=== PATIENT | male | born 1970 | race American Indian/Alaskan Native ===

== ENCOUNTER 2020-10-11 17:18 | Inpatient (IN) | payer OTHER ==
[2020-10-11 18:14] LABS: Basophils % (Auto) 0.2 % (0.0-1.8); Hematocrit 44.5 % (35.5-45.6); Hemoglobin 14.5 gm/dl (11.8-15.2); Lymphocytes # (Auto) 1.3 K/mm3 (1.2-5.4); Lymphocytes % (Auto) 11.1 % (13.4-35.0); Mean Corpuscular HGB Conc 33 % (32-34); Mean Corpuscular Volume 80 fl (84-94); Monocytes # (Auto) 0.6 K/mm3 (0.0-0.8); Monocytes % (Auto) 5.4 % (0.0-7.3); Platelet Count 314 K/mm3 (140-440); Red Blood Count 5.58 M/mm3 (3.65-5.03); Red Cell Distribution Width 13.3 % (13.2-15.2)
[2020-10-11 18:30] LABS: Alanine Aminotransferase 134 units/L (7-56); Albumin 4.5 g/dL (3.9-5); BUN/Creatinine Ratio 13; Blood Urea Nitrogen 12 mg/dL (9-20); Calcium 9.5 mg/dL (8.4-10.2); Hemolysis Index 4
[2020-10-11 19:53] LABS: Bilirubin,Urine NEG (Negative); Blood,Urine SM (Negative); Color,Urine Yellow (Yellow); Mucus,Urine FEW /HPF; Protein,Urine <15 mg/dL mg/dL (Negative); Urobilinogen,Urine < 2.0 mg/dL (<2.0)
[2020-10-11] MEDS ORDERED: HYOSCYAMINE SUBL 0.125 MG TAB SL ONE (20:06)
[2020-10-11] MEDS ORDERED: ONDANSETRON 4 MG ODT TAB PO STA (20:06)
--- NOTE | 2020-10-11 20:12 | Emergency Department Report ---
ED Abdominal Pain HPI - General Chief Complaint: Abdominal Pain Stated Complaint: CHEST PAIN / ABD PAIN Time Seen by Provider: 10/11/20 20:05 Source: patient Mode of arrival: Wheelchair Limitations: No Limitations - History of Present Illness Initial Comments: 49-year-old obese F Vietnamese male [facility] emerge department complaining of abdominal pain since this morning associated with nausea and vomiting but no diarrhea and radiates up towards her chest and across to the right upper quadrant. States last bowel movement was yesterday and he feels that he is full and bloated and needs to have a bowel movement and is unable to do so. Reports no hemoptysis hematemesis hematochezia, no fever, chills, sweats. MD Complaint: abdominal pain Location: LUQ, RUQ, epigastric Migration to: no migration Quality: aching, dull Consistency: constant Improves With: nothing Worsens With: nothing Associated Symptoms: denies other symptoms - Related Data Allergies Allergy/AdvReac Type Severity Reaction Status Date / Time No Known Allergies Allergy Unverified 10/11/20 17:44 ED Review of Systems ROS: Stated complaint: CHEST PAIN / ABD PAIN Other details as noted in HPI Comment: All other systems reviewed and negative ED Past Medical Hx - Past Medical History Previous Medical History?: No - Surgical History Past Surgical History?: Yes Additional Surgical History: HERNIA SURGERY ED Physical Exam - General Limitations: No Limitations General appearance: alert, in no apparent distress - Head Head exam: Present: atraumatic, normocephalic - Eye Eye exam: Present: normal appearance - ENT ENT exam: Present: mucous membranes moist - Neck Neck exam: Present: normal inspection, full ROM - Respiratory Respiratory exam: Present: normal lung sounds bilaterally. Absent: respiratory distress - Cardiovascular Cardiovascular Exam: Present: regular rate, normal rhythm. Absent: systolic murmur, diastolic murmur, rubs, gallop - GI/Abdominal GI/Abdominal exam: Present: soft, tenderness (His diffuse tenderness and abdomen is protuberant slightly increased tympany noted. Pain with palpation. No rebound is noted. No Rovsing, no Cui Urrutia, no Red House sign. No CVA tenderness noted), guarding, normal bowel sounds. Absent: distended, rebound, rigid, organomegaly, mass - Rectal Rectal exam: Present: deferred. Absent: normal inspection, normal rectal tone - Extremities Exam Extremities exam: Present: normal inspection, normal capillary refill - Back Exam Back exam: Present: normal inspection. Absent: CVA tenderness (R), CVA tender ness (L) - Neurological Exam Neurological exam: Present: alert, oriented X3, CN II-XII intact - Psychiatric Psychiatric exam: Present: normal affect, normal mood - Skin Skin exam: Present: warm, dry, intact, normal color. Absent: rash, cyanosis, diaphoretic, erythema ED Course Vital Signs 10/11/20 17:46 Temperature 98.6 F Pulse Rate 68 Respiratory 18 Rate Blood Pressure 180/88 O2 Sat by Pulse 96 Oximetry ED Medical Decision Making - Lab Data Result diagrams: 10/11/20 17:59 10/11/20 17:59 - Radiology Data Radiology results: report reviewed [address] [place] [address] Cat Scan Report Signed Patient: CHAPIN RIOS MR#: [id number] : 1970 Acct:[id number] Age/Sex: 49 / M ADM Date: 10/11/20 Loc: ED Attending Dr: Ordering Physician: PAT RIOS Date of Service: 10/11/20 Procedure(s): CT abdomen pelvis w con Accession Number(s): [id number] cc: PAT RIOS CT abdomen pelvis w con INDICATION / CLINICAL INFORMATION: severe abdominal pain. TECHNIQUE: Axial CT images were obtained through the abdomen and pelvis after I V contrast. All CT scans at this location are performed using CT dose reduction for ALARA by means of automated expo sure control. COMPARISON: None available. FINDINGS: LOWER CHEST: Bibasilar volume loss. LIVER: Suspected hepatic steatosis. GALLBLADDER/BILIARY TREE: The gallbladder is distended with stones and wall thickening with pericholecystic fluid. No biliary dilatation. PANCREAS: No significant abnormality SPLEEN: No significant abnormality ADRENALS: No significant abnormality KIDNEYS / URETER: Right renal cysts. Kidneys enhance symmetrically. No hy dronephrosis. URINARY BLADDER: No significant abnormality REPRODUCTIVE ORGANS: No significant abnormality STOMACH / BOWEL: Colonic diverticulosis without evidence of diverticulitis.Small bowel is normal in caliber. The appendix is normal in caliber. LYMPH NODES: No significant adenopathy. VASCULATURE: No significant abnormality. OTHER: No free air, free fluid, or focal fluid collection is identified. Focal area of fat necrosis is seen within the mesentery of the left abdomen. Fat-containing periumbilical hernia without comp lication. SKELETAL SYSTEM: No acute osseous findings. IMPRESSION: 1. Distended gallbladder with stones and wall thickening with pericholecystic fluid, compatible with cholecystitis. No biliary dilatation. 2. No other acute abnormality. Other chronic and incidental findings as above. Signer Name: Jarred Barrett MD Signed: 10/11/2020 11:51 PM Workstation Name: [id number] Transcribed By: JACLYN Dictated By: JARRED BARRETT MD Electronically Authenticated By: JARRED BARRETT MD Signed Date/Time: 10/11/202350 DD/ 47 TD/TT: Print - Medical Decision Making Patient presents emergency department with complaint of abdominal pain which appears to be secondary to cholecystitis. A CT scan was performed to evaluate for potential causes of abdominal pain and did show some inflammatory changes to the gallbladder which coincided with the examination of pain to the epigastric and right upper quadrant region. Is also associated with nausea and vomiting. Labs did show an elevated white count 11.7 and ALT 134. Case was discussed with the surgeon Dr. Webber who advised to be n.p.o. and started on Zosyn or Levaquin with the hopes of surgical intervention later on today. At this week with hospitalist for admission process who will come to the bedside and evaluate the patient. I have discussed with the patient the findings on the CT scan and the need for surgical intervention. At this present time is no findings consistent with appendicitis, ischemic bowel, bowel perforation, obstructive pathology. Pain has been controlled with with morphine and nausea with Zofran. Attending Dr. Wetzel is aware of the patient and the findings and the need for admission Critical care attestation.: If time is entered above; I have spent that time in minutes in the direct care of this critically ill patient, excluding procedure time. ED Disposition Clinical Impression: Cholecystitis Disposition: OP ADMIT IP TO THIS HOSP Is pt being admited?: Yes Does the pt Need Aspirin: No Condition: Stable
--- NOTE | 2020-10-11 20:38 | XRay Report ---
ABDOMEN 3 VIEW(S) INDICATION / CLINICAL INFORMATION: Diffuse abdominal pain and no bowel movement. COMPARISON: None available. FINDINGS: TUBES / LINES: None. BOWEL GAS PATTERN: There is no evidence of bowel obstruction or mass effect. FREE AIR / EXTRALUMINAL GAS: None seen. ADDITIONAL FINDINGS: There is a 3.3 cm ovoid area of eggshell calcification in the left mid abdomen w hich is of uncertain etiology and clinical significance. CHEST: Visualized chest shows no significant abnormality. IMPRESSION: 1. No evidence of bowel obstruction or free air. 2. Nonspecific 3.3 cm eggshell calcification in the left mid abdomen. Signer Name: Sunil Hoyt MD Signed: 10/11/2020 8:33 PM Workstation Name: [id number]
[2020-10-11] MEDS ORDERED: MORPHINE 4 MG/1 ML INJ IV STA (22:34)
--- NOTE | 2020-10-11 23:55 | Cat Scan Report ---
CT abdomen pelvis w con INDICATION / CLINICAL INFORMATION: severe abdominal pain. TECHNIQUE: Axial CT images were obtained through the abdomen and pelvis after IV contrast. All CT sc ans at this location are performed using CT dose reduction for ALARA by means of automated exposure c ontrol. COMPARISON: None available. FINDINGS: LOWER CHEST: Bibasilar volume loss. LIVER: Suspected hepatic steatosis. GALLBLADDER/BILIARY TREE: The gallbladder is distended with stones and wall thickening with perichole cystic fluid. No biliary dilatation. PANCREAS: No significant abnormality SPLEEN: No significant abnormality ADRENALS: No significant abnormality KIDNEYS / URETER: Right renal cysts. Kidneys enhance symmetrically. No hydronephrosis. URINARY BLADDER: No significant abnormality REPRODUCTIVE ORGANS: No significant abnormality STOMACH / BOWEL: Colonic diverticulosis without evidence of diverticulitis.Small bowel is normal in c aliber. The appendix is normal in caliber. LYMPH NODES: No significant adenopathy. VASCULATURE: No significant abnormality. OTHER: No free air, free fluid, or focal fluid collection is identified. Focal area of fat necrosis i s seen within the mesentery of the left abdomen. Fat-containing periumbilical hernia without complica tion. SKELETAL SYSTEM: No acute osseous findings. IMPRESSION: 1. Distended gallbladder with stones and wall thickening with pericholecystic fluid, compatible with cholecystitis. No biliary dilatation. 2. No other acute abnormality. Other chronic and incidental findings as above. Signer Name: Ronni Barrett MD Signed: 10/11/2020 11:51 PM Workstation Name: [id number]
[2020-10-12] MEDS ORDERED: PIPERACILLIN/TAZOBACTAM 3.375 3.375 GM/50 ML BAG IV ONE (01:32)
[2020-10-12] MEDS ORDERED: MORPHINE 4 MG/1 ML INJ IV STA (01:52)
[2020-10-12] MEDS ORDERED: diphenhydrAMINE 50 MG/ML VIAL IV STA (01:52)
[2020-10-12] MEDS ORDERED: METOCLOPRAMIDE 10 MG/2 ML INJ IV STA (01:52)
[2020-10-12] MEDS ORDERED: METOCLOPRAMIDE 10 MG/2 ML INJ ONE (01:53)
[2020-10-12] MEDS ORDERED: diphenhydrAMINE 50 MG/ML VIAL ONE (01:53)
[2020-10-12] MEDS ORDERED: MORPHINE 4 MG/1 ML INJ ONE (01:53)
[2020-10-12] MEDS ORDERED: MAGNESIUM HYDROXIDE (MOM) ORAL LIQD UDC PO PRN (02:09)
[2020-10-12] MEDS ORDERED: ONDANSETRON 4 MG/2 ML INJ IV PRN (02:09)
[2020-10-12] MEDS ORDERED: ACETAMINOPHEN 325 MG TAB PO PRN (02:09)
--- NOTE | 2020-10-12 02:20 | History and Physical Report ---
History of Present Illness Date of examination: 10/12/20 Date of admission: 10/12/20 01:37 Chief complaint: Abdominal pain History of present illness: 49-year-old male with no significant past medical history presents to the emergency room today complaining of nausea and vomiting and abdominal pain. Abdominal pain is said to radiate towards the upper chest. He denies any diarrhea but states he feels bloated. Last bowel movement was less than 24 hours ago. He denies any hematemesis or hematochezia. Abdominal pain is said to be more in the upper abdomen, no no relieving or exacerbating factor. Patient denies any fever or chills, no headache or dizziness, no diaphoresis. Patient denies any hematuria or dysuria. Denies any sick contacts and no recent travel. Denies any contact with anyone with COVID-19. Work-up in the emergency room today, patient had a mildly elevated white count of 11.7, CT of the abdomen and pelvis shows findings compatible with cholecystitis. General surgeon Dr. Webber has been notified by the ER staff. Patient being admitted with acute cholecystitis. Past History Past Medical History: No medical history Past Surgical History: hernia repair Social history: no significant social history Family history: no significant family history Medications and Allergies Allergies Allergy/AdvReac Type Severity Reaction Status Date / Time No Known Allergies Allergy Unverified 10/11/20 17:44 Active Meds: Active Medications Acetaminophen (Acetaminophen 325 Mg Tab) 650 mg PO Q4H PRN PRN Reason: Pain MILD(1-3)/Fever >100.5/ABARCA Sodium Chloride (Nacl 0.9% 1000 Ml) 1,000 mls @ 125 mls/hr IV DIRECT HOLLY Piperacillin Sod/Tazobactam Sod (Zosyn/Ns 4.5gm/100ml) 4.5 gm in 100 mls @ 200 mls/hr IV Q8H HOLLY; Protocol Magnesium Hydroxide (Magnesium Hydroxide (Mom) Oral Liqd Udc) 30 ml PO Q4H PRN PRN Reason: Constipation Morphine Sulfate (Morphine 2 Mg/1 Ml Inj) 2 mg IV Q4H PRN PRN Reason: Pain, Moderate (4-6) Morphine Sulfate (Morphine 4 Mg/1 Ml Inj) 4 mg IV Q4H PRN PRN Reason: Pain , Severe (7-10) Ondansetron HCl (Ondansetron 4 Mg/2 Ml Inj) 4 mg IV Q8H PRN PRN Reason: Nausea And Vomiting Sodium Chloride (Sodium Chloride 0.9% 10 Ml Flush Syringe) 10 ml IV BID HOLLY Sodium Chloride (Sodium Chloride 0.9% 10 Ml Flush Syringe) 10 ml IV PRN PRN PRN Reason: LINE FLUSH Review of Systems Constitutional: no fever, no chills, no fatigue, no weakness Ears, nose, mouth and throat: no nasal congestion, no sore throat Cardiovascular: no chest pain, no palpitations Respiratory: no cough, no shortness of breath Gastrointestinal: abdominal pain, nausea, vomiting, no diarrhea Musculoskeletal: no neck pain, no low back pain Integumentary: no rash, no pruritis Neurological: no headaches, no confusion Psychiatric: no anxiety, no depression Endocrine: no polyphagia, no polydipsia, no polyuria, no nocturia Exam - Constitutional Vitals: Temp Pulse Resp BP Pulse Ox 98.6 F 68 18 180/88 96 10/11/20 17:46 10/11/20 17:46 10/11/20 17:46 10/11/20 17:46 10/11/20 17:46 General appearance: Present: no acute distress, well-nourished - EENT Eyes: Present: PERRL, EOM intact. Absent: scleral icterus ENT: hearing intact, clear oral mucosa, dentition normal - Neck Neck: Present: supple, normal ROM - Respiratory Respiratory effort: normal Respiratory: bilateral: CTA - Cardiovascular Rhythm: regular Heart Sounds: Present: S1 & S2. Absent: gallop, systolic murmur, diastolic murmur, rub, click - Extremities Extremities: no ischemia, No edema, normal temperature, normal color, Full ROM Peripheral Pulses: within normal limits - Abdominal General gastrointestinal: Present: soft, non-tender, non-distended, normal bowel sounds. Absent: mass - Integumentary Integumentary: Present: clear, warm, dry. Absent: rash - Musculoskeletal Musculoskeletal: strength equal bilaterally - Psychiatric Psychiatric: appropriate mood/affect, intact judgment & insight, memory intact, cooperative - Neurologic Neurologic: CNII-XII intact, no focal deficits, moves all extremities Results - Labs CBC & Chem 7: 10/11/20 17:59 10/11/20 17:59 Labs: Abnormal lab results 10/11/20 10/11/20 Range/Units 17:59 17:59 WBC 11.7 H (4.5-11.0) K/mm3 RBC 5.58 H (3.65-5.03) M/mm3 MCV 80 L (84-94) fl MCH 26 L (28-32) pg Lymph % (Auto) 11.1 L (13.4-35.0) % Seg Neutrophils % 83.3 H (40.0-70.0) % Seg Neutrophils # 9.8 H (1.8-7.7) K/mm3 Glucose 130 H (75-100) mg/dL ALT 134 H (7-56) units/L Assessment and Plan - Patient Problems (1) Cholecystitis Current Visit: Yes Status: Acute Plan to address problem: Patient admitted and placed n.p.o. We will place on IV fluid and empiric IV antibiotics as recommended by the surgeon. Dr. Webber has been consulted by the ER physician. (2) DVT prophylaxis Current Visit: Yes Status: Acute Plan to address problem: Patient placed on sequential compression device. (3) Full code status Current Visit: Yes Status: Acute Plan to address problem: Patient is a full code.
--- NOTE | 2020-10-12 03:09 | XRay Report ---
XR chest routine 2V INDICATION / CLINICAL INFORMATION: preop. COMPARISON: 10/11/2020 FINDINGS: SUPPORT DEVICES: None. HEART /PULMONARY VASCULATURE: No significant abnormality. LUNGS / PLEURA: Low lung volumes with bibasilar volume loss. No pneumothorax. ADDITIONAL FINDINGS: No significant additional findings. IMPRESSION: 1. No acute findings. Signer Name: Ronni Barrett MD Signed: 10/12/2020 3:05 AM Workstation Name: [id number]
[2020-10-12] MEDS: SODIUM CHLORIDE 0.9% 1000 ML 1,000 ML IV SCH ×3 (03:23→20:00)
[2020-10-12] MEDS: MORPHINE 2 MG/1 ML INJ IV PRN (09:27)
[2020-10-12] MEDS: PIPERACIL/TAZOBACTA 4.5/NS 100 4.5 GM/100 ML VIAL IV SCH ×2 (09:27→17:38)
--- NOTE | 2020-10-12 12:37 | Event Note ---
Date: 10/12/20 Patient seen and examined, resting, still with some right upper quadrant pain. No new compliants. Awaiting surgical eval.
--- NOTE | 2020-10-12 14:17 | Consultation ---
History of Present Illness Consult date: 10/12/20 Reason for consult: abdominal pain - History of present illness History of present illness: 49 yo male who presented to the ED c/o RUQ pain, nausea and vomiting. Pt denies fever, chills, hematemesis or urinary complaints. Past History Past Medical History: No medical history Past Surgical History: hernia repair Social history: no significant social history Family history: no significant family history, other (FH is + for gallbladder disease.) Medications and Allergies Allergies Allergy/AdvReac Type Severity Reaction Status Date / Time No Known Allergies Allergy Unverified 10/11/20 17:44 Home Medications Medication Instructions Recorded Confirmed Last Taken Type No Known Home Medications [No 10/12/20 10/12/20 Unknown History Reported Home Medications] Active Meds: Active Medications Acetaminophen (Acetaminophen 325 Mg Tab) 650 mg PO Q4H PRN PRN Reason: Pain MILD(1-3)/Fever >100.5/ABARCA Sodium Chloride (Nacl 0.9% 1000 Ml) 1,000 mls @ 125 mls/hr IV DIRECT HOLLY Last Admin: 10/12/20 03:23 Dose: 125 mls/hr Documented by: Piperacillin Sod/Tazobactam Sod (Zosyn/Ns 4.5gm/100ml) 4.5 gm in 100 mls @ 200 mls/hr IV Q8H HOLLY; Protocol Last Admin: 10/12/20 09:27 Dose: 200 mls/hr Documented by: Magnesium Hydroxide (Magnesium Hydroxide (Mom) Oral Liqd Udc) 30 ml PO Q4H PRN PRN Reason: Constipation Morphine Sulfate (Morphine 2 Mg/1 Ml Inj) 2 mg IV Q4H PRN PRN Reason: Pain, Moderate (4-6) Last Admin: 10/12/20 09:27 Dose: 2 mg Documented by: Morphine Sulfate (Morphine 4 Mg/1 Ml Inj) 4 mg IV Q4H PRN PRN Reason: Pain , Severe (7-10) Ondansetron HCl (Ondansetron 4 Mg/2 Ml Inj) 4 mg IV Q8H PRN PRN Reason: Nausea And Vomiting Sodium Chloride (Sodium Chloride 0.9% 10 Ml Flush Syringe) 10 ml IV BID HOLLY Last Admin: 10/12/20 09:28 Dose: 10 ml Documented by: Sodium Chloride (Sodium Chloride 0.9% 10 Ml Flush Syringe) 10 ml IV PRN PRN PRN Reason: LINE FLUSH Review of Systems All systems: negative (none.) Exam Vital Signs Temp Pulse Resp BP Pulse Ox 98.6 F 68 18 180/88 96 10/11/20 17:46 10/11/20 17:46 10/11/20 17:46 10/11/20 17:46 10/11/20 17:46 - General physical appearance Positive: well developed, well nourished, no distress - Eyes Positive: PERRL, normal occular movement - ENT Positive: normal pinna, normal nares, normal mucosa, no hearing loss, no congestion - Neck Positive: no masses, no bruits, trachea midline, no venous distension - Respiratory Positive: normal expansion, normal respiratory effort, clear to auscultation - Cardiovascular Rhythm: regular Heart Sounds: Present: S1 & S2. Absent: rub, click - Extremities Extremities: no ischemia, pulses symmetrical, No edema - Breasts Breasts: normal, no mass, no skin changes - Abdomen Abdomen: Present: soft, bowel sounds normal, other (Mild tenderness in the RUQ with mild guarding.). Absent: distended Hernia: none - Genitourinary Male Genitourinary: normal Female Genitourinary: normal - Integumentary no rash, no growths, no abnormal pigmentation - Neurologic Neurologic: alert and oriented to time, place and person, motor strength and sensation are grossly intact - Musculoskeletal normal gait, normal posture - Psychiatric Psychiatric: appropriate mood/affect, intact judgment & insight Results - Labs 10/11/20 17:59 10/11/20 17:59 Abnormal lab results 10/11/20 10/11/20 Range/Units 17:59 17:59 WBC 11.7 H (4.5-11.0) K/mm3 RBC 5.58 H (3.65-5.03) M/mm3 MCV 80 L (84-94) fl MCH 26 L (28-32) pg Lymph % (Auto) 11.1 L (13.4-35.0) % Seg Neutrophils % 83.3 H (40.0-70.0) % Seg Neutrophils # 9.8 H (1.8-7.7) K/mm3 Glucose 130 H (75-100) mg/dL ALT 134 H (7-56) units/L Diabetes panel 10/11/20 Range/Units 17:59 Sodium 137 (137-145) mmol/L Potassium 4.4 (3.6-5.0) mmol/L Chloride 100.0 (98-107) mmol/L Carbon Dioxide 23 (22-30) mmol/L BUN 12 (9-20) mg/dL Creatinine 0.9 (0.8-1.3) mg/dL Glucose 130 H (75-100) mg/dL Calcium 9.5 (8.4-10.2) mg/dL AST 36 (5-40) units/L ALT 134 H (7-56) units/L Alkaline Phosphatase 125 (35-129) units/L Total Protein 7.9 (6.3-8.2) g/dL Albumin 4.5 (3.9-5) g/dL Calcium panel 10/11/20 Range/Units 17:59 Calcium 9.5 (8.4-10.2) mg/dL Albumin 4.5 (3.9-5) g/dL Pituitary panel 10/11/20 Range/Units 17:59 Sodium 137 (137-145) mmol/L Potassium 4.4 (3.6-5.0) mmol/L Chloride 100.0 (98-107) mmol/L Carbon Dioxide 23 (22-30) mmol/L BUN 12 (9-20) mg/dL Creatinine 0.9 (0.8-1.3) mg/dL Glucose 130 H (75-100) mg/dL Calcium 9.5 (8.4-10.2) mg/dL Adrenal panel 10/11/20 Range/Units 17:59 Sodium 137 (137-145) mmol/L Potassium 4.4 (3.6-5.0) mmol/L Chloride 100.0 (98-107) mmol/L Carbon Dioxide 23 (22-30) mmol/L BUN 12 (9-20) mg/dL Creatinine 0.9 (0.8-1.3) mg/dL Glucose 130 H (75-100) mg/dL Calcium 9.5 (8.4-10.2) mg/dL Total Bilirubin 0.60 (0.1-1.2) mg/dL AST 36 (5-40) units/L ALT 134 H (7-56) units/L Alkaline Phosphatase 125 (35-129) units/L Total Protein 7.9 (6.3-8.2) g/dL Albumin 4.5 (3.9-5) g/dL - Imaging CT scan - abdomen: report reviewed CT scan - pelvis: report reviewed Assessment and Plan - Patient Problems (1) Cholecystitis Current Visit: Yes Status: Acute Plan to address problem: 1) NPO 2) RUQ US 3) Lap justin tomorrow 4) SCD
--- NOTE | 2020-10-12 15:32 | Ultrasound Report ---
Limited abdominal ultrasound INDICATION: Abdominal pain with right upper quadrant pain FINDINGS: Aorta is not well seen. Visualized aorta appears normal. Liver measures 15.9 cm with fatty infiltration. Multiple gallstones are identified. Gallbladder wall is thickened measuring 5 mm. Pancr eas and IVC are not well seen. Portal vein is patent. IMPRESSION: 1. Cholelithiasis with gallbladder wall thickening. Clinical correlation for cholecystitis. No perich olecystic fluid. 2. Fatty infiltration of the liver. Signer Name: Greg Soolmon MD Signed: 10/12/2020 3:27 PM Workstation Name: [id number]
[2020-10-12] MEDS: MORPHINE 4 MG/1 ML INJ IV PRN (15:37)
--- NOTE | 2020-10-12 18:01 | Electrocardiograph Report ---
[facility] Test Date: 2020-10-11 Test Time: 17:49:45 Pat Name: CHAPIN RIOS Department: Room: B303 1 Gender: M Philosophy Professor: HARRISON : 1970 Requested By: CARLA OAKES Order Number: [id number] Reading MD: Alysa Feldman Measurements Intervals [place] Rate: 69 P: -15 MI: 128 QRS: 24 QRSD: 84 T: 12 QT: 391 QTc: 419 Interpretive Statements Sinus rhythm No previous ECG available for comparison Electronically Signed On 10-12-2020 18:00:26 EDT by Alysa Feldman
[2020-10-13] MEDS: PIPERACIL/TAZOBACTA 4.5/NS 100 4.5 GM/100 ML VIAL IV SCH ×3 (01:42→19:17)
[2020-10-13] MEDS ORDERED: ROCURONIUM 50 MG/5 ML INJ IV ONE ×2 (07:56→10:48)
[2020-10-13] MEDS ORDERED: KETOROLAC 30 MG/1 ML INJ ONE (07:56)
[2020-10-13] MEDS ORDERED: fentaNYL 100 MCG/2 ML INJ ONE ×3 (07:56→11:15)
[2020-10-13] MEDS ORDERED: ONDANSETRON 4 MG/2 ML INJ ONE (07:56)
[2020-10-13] MEDS ORDERED: dexAMETHasone 20 MG/5 ML VIAL ONE (07:56)
[2020-10-13] MEDS ORDERED: LIDOCAINE MPF (2%) 20 MG/1 ML VIAL 5 ML ONE (07:56)
[2020-10-13] MEDS ORDERED: propofoL 200 MG/20 ML VIAL IV ONE (07:59)
[2020-10-13] MEDS ORDERED: BUPIVACAINE/PF (0.25%) 2.5 MG/ML 30 ML VIAL INFILTRATI ONE ×3 (08:06→09:47)
[2020-10-13] MEDS ORDERED: MIDAZOLAM 2 MG/2 ML INJ ONE (09:14)
[2020-10-13 09:16] LABS: Basophils % (Auto) 0.2 % (0.0-1.8); Eosinophils % (Auto) 0.1 % (0.0-4.3); Hematocrit 37.9 % (35.5-45.6); Hemoglobin 12.8 gm/dl (11.8-15.2); Lymphocytes # (Auto) 1.8 K/mm3 (1.2-5.4); Lymphocytes % (Auto) 13.1 % (13.4-35.0); Mean Corpuscular HGB Conc 34 % (32-34); Mean Corpuscular Volume 79 fl (84-94); Monocytes % (Auto) 7.3 % (0.0-7.3); Platelet Count 250 K/mm3 (140-440); Red Blood Count 4.79 M/mm3 (3.65-5.03); Red Cell Distribution Width 13.6 % (13.2-15.2)
[2020-10-13] MEDS ORDERED: HYDROmorphone 1 MG/1 ML INJ ONE (09:28)
[2020-10-13 09:35] LABS: INR 1.19 (0.87-1.13)
[2020-10-13 09:42] LABS: BUN/Creatinine Ratio 9; Blood Urea Nitrogen 11 mg/dL (9-20); Calcium 8.7 mg/dL (8.4-10.2); Hemolysis Index 0
[2020-10-13] MEDS ORDERED: SODIUM CHLORIDE 0.9% IRR 1,500 ML BOTTLE IR ONE ×2 (09:47)
[2020-10-13] MEDS ORDERED: SODIUM CHLORIDE 0.9% IRRIG SOLN 2000 ML IR ONE ×2 (09:47)
[2020-10-13] MEDS ORDERED: PHENYLEPHRINE/NS 1,000 MCG/10 ML SYRINGE (OR USE) IV ONE (10:03)
[2020-10-13] MEDS ORDERED: NEOSTIGMINE 10MG/10 ML INJ MDV ONE (10:24)
[2020-10-13] MEDS ORDERED: GLYCOPYRROLATE 0.4 MG/2 ML INJ ONE (10:24)
--- NOTE | 2020-10-13 12:56 | Procedure Note ---
Date of procedure: 10/13/20 Pre-op diagnosis: 1) Acute cholecystitis Post-op diagnosis: same (Also, incarcerated epigastric hernia) Procedure: 1) Laparoscopic cholecystectomy 2) Open ventral hernia repair Description of procedure: Pt was placed supine on the OR table. GETA was admi nistered. Abdomen was prepped and draped. Proposed trocar incisions were infiltrated with 10 ml of 0.25% Marcaine with epinephrine. Peritoneal cavity was entered via a small infraumbilical incision. [place] port was inserted into the peritoneal cavity and pneumoperitoneum established. 10 mm subxiphoid, 5 mm RUQ and 5 mm right lateral ports were inserted into the peritoneal cavity under direct vision. Pt was placed head and right side up. Omental adhesions covered the gallbladder. These were bluntly lysed. The gallbladder was tense and markedly inflamed. A needle trocar was used to aspirate about 30 ml of bilious fluid from the gallbladder. Gallbladder fundus was grasped and was retracted cephalad. Neck of the gallbladder was skeletonized and the critical view of safety obtained. Cystic duct was milked toward the gallbladder. Cystic duct and artery were doubly clipped and divided. Gallbladder was dissected off of the liver fossa with blunt and cautery dissection. Gallbladder was placed in an endobag. I then prepared to enlarge the infraumbilical incison to remove the gallbladder and identified an incarcerated supraumbilical fascial defect measuring about 1.8 cm in diameter. I extended the infraumbilical fascial incision cephalad to include the supraumbilical hernia. The supraumbilical hernia sac was incised and the incarcerated omentum freed up and returned to the peritoneal cavity. The sac was excised down to it's fascial margins. The now single fascial defect was closed with multiple interrupted sutures of 0- Ethibond. Prior to completely closing the periumbilical fascial defect, a [place] port was re-inserted into the peritoneal cavity and pneumoperitoneum re- established. A 10 mm flat ARNOLDO drain was passed into the peritoneal and was placed in the infra-hepatic space/gallbladder fossa. It was then brought out via the right lateral 5 mm trocar site and was secured to the skin with a single suture of 3-0 Nylon. [place] port and upper abdominal ports were removed and there was no bleeding from the port entry sites under low pressure. Skin incisions were closed with running subcuticular sutures of 4-0 Monocryl. Skin glue was applied to all incisions except the right lateral incision which was dressed with a slitted gauze. Pt tolerated the procedure well. Pt was extubated in the OR and was taken to PACU in stable condition. Findings: 1) Severe acute cholecystitis 2) Incarcerated epigastric hernia Anesthesia: GETA Surgeon: NAVID VASQUEZ Estimated blood loss: other (200 ml) Pathology: list (1) Gallbladder and stones 2) Hernia sac) Specimen disposition: to lab Condition: stable Disposition: PACU
--- NOTE | 2020-10-13 13:48 | Progress Note ---
Assessment and Plan Assessment and plan: Acute cholecystitis -Status post laparoscopic cholecystectomy. Discussed with Dr. Webber and he said patient has inflamed gallbladder and placed draining tube -Continue with IV antibiotic Ventral hernia -Status post hernia repair Per Dr. Webber patient to be in the hospital for a couple of days for IV antibiotics. History Interval history: Patient was admitted for acute cholecystitis Status post cholecystectomy and ventral hernia repair Hospitalist Physical - Physical exam Narrative exam: Not in cardiopulmonary distress. The patient appeared well nourished and normally developed. Vital signs as documented. Head exam is unremarkable. No scleral icterus . Neck is without jugular venous distension, thyromegaly, or carotid bruits. Lungs are clear to auscultation. Cardiac exam reveals regular rate and Rhythm. Abdominal exam reveals laparoscopic incisions. Extremities are nonedematous and both femoral and pedal pulses are normal. HAND THERMAL CUTTER: Alert and oriented 3. No focal weakness. - Constitutional Vitals: Temp Pulse Resp BP Pulse Ox 98.1 F 84 20 118/72 98 10/13/20 12:50 10/13/20 12:50 10/13/20 12:50 10/13/20 12:50 10/13/20 12:50 General appearance: Present: no acute distress, well-nourished Results - Labs CBC & Chem 7: 10/13/20 07:55 10/13/20 07:55 Labs: Laboratory Last Values WBC 13.4 K/mm3 (4.5-11.0) H 10/13/20 07:55 RBC 4.79 M/mm3 (3.65-5.03) 10/13/20 07:55 Hgb 12.8 gm/dl (11.8-15.2) 10/13/20 07:55 Hct 37.9 % (35.5-45.6) D 10/13/20 07:55 MCV 79 fl (84-94) L 10/13/20 07:55 MCH 27 pg (28-32) L 10/13/20 07:55 MCHC 34 % (32-34) 10/13/20 07:55 RDW 13.6 % (13.2-15.2) 10/13/20 07:55 Plt Count 250 K/mm3 (140-440) 10/13/20 07:55 Lymph % (Auto) 13.1 % (13.4-35.0) L 10/13/20 07:55 [place] % (Auto) 7.3 % (0.0-7.3) 10/13/20 07:55 Eos % (Auto) 0.1 % (0.0-4.3) 10/13/20 07:55 Baso % (Auto) 0.2 % (0.0-1.8) 10/13/20 07:55 Lymph # (Auto) 1.8 K/mm3 (1.2-5.4) 10/13/20 07:55 [place] # (Auto) 1.0 K/mm3 (0.0-0.8) H 10/13/20 07:55 Eos # (Auto) 0.0 K/mm3 (0.0-0.4) 10/13/20 07:55 Baso # (Auto) 0.0 K/mm3 (0.0-0.1) 10/13/20 07:55 Seg Neutrophils % 79.3 % (40.0-70.0) H 10/13/20 07:55 Seg Neutrophils # 10.7 K/mm3 (1.8-7.7) H 10/13/20 07:55 PT 15.6 Sec. (12.2-14.9) H 10/13/20 07:55 INR 1.19 (0.87-1.13) H 10/13/20 07:55 Sodium 138 mmol/L (137-145) 10/13/20 07:55 Potassium 4.0 mmol/L (3.6-5.0) 10/13/20 07:55 Chloride 100.7 mmol/L (98-107) 10/13/20 07:55 Carbon Dioxide 24 mmol/L (22-30) 10/13/20 07:55 Anion Gap 17 mmol/L 10/13/20 07:55 BUN 11 mg/dL (9-20) 10/13/20 07:55 Creatinine 1.2 mg/dL (0.8-1.3) 10/13/20 07:55 Estimated GFR > 60 ml/min 10/13/20 07:55 BUN/Creatinine Ratio 9 % 10/13/20 07:55 Glucose 102 mg/dL (75-100) H 10/13/20 07:55 Calcium 8.7 mg/dL (8.4-10.2) 10/13/20 07:55 Total Bilirubin 0.60 mg/dL (0.1-1.2) 10/11/20 17:59 AST 36 units/L (5-40) 10/11/20 17:59 ALT 134 units/L (7-56) H 10/11/20 17:59 Alkaline Phosphatase 125 units/L (35-129) 10/11/20 17:59 Total Protein 7.9 g/dL (6.3-8.2) 10/11/20 17:59 Albumin 4.5 g/dL (3.9-5) 10/11/20 17:59 Albumin/Globulin Ratio 1.3 % 10/11/20 17:59 Lipase 50 units/L (13-60) 10/11/20 17:59 Urine Color Yellow (Yellow) 10/11/20 19:38 Urine Turbidity Clear (Clear) 10/11/20 19:38 Urine pH 5.0 (5.0-7.0) 10/11/20 19:38 Ur Specific [place] 1.021 (1.003-1.030) 10/11/20 19:38 Urine Protein <15 mg/dl mg/dL (Negative) 10/11/20 19:38 Urine Glucose (UA) Neg mg/dL (Negative) 10/11/20 19:38 Urine Ketones 20 mg/dL (Negative) 10/11/20 19:38 Urine Blood Sm (Negative) 10/11/20 19:38 Urine Nitrite Neg (Negative) 10/11/20 19:38 Urine Bilirubin Neg (Negative) 10/11/20 19:38 Urine Urobilinogen < 2.0 mg/dL (<2.0) 10/11/20 19:38 Ur Leukocyte Esterase Neg (Negative) 10/11/20 19:38 Urine WBC (Auto) 1.0 /HPF (0.0-6.0) 10/11/20 19:38 Urine RBC (Auto) 7.0 /HPF (0.0-6.0) 10/11/20 19:38 Urine Mucus Few /HPF 10/11/20 19:38 [place]/IV: Voiding Method Toilet Active Medications - Current Medications Current Medications: Generic Name Dose Route Start Last Admin Trade Name Zekeq PRN Reason Stop Dose Admin Acetaminophen 650 mg 10/12/20 02:09 10/12/20 16:54 Acetaminophen 325 Mg Tab PO 650 mg Q4H PRN Administration Pain MILD(1-3)/Fever >100.5/ABARCA Sodium Chloride 1,000 mls @ 125 mls/hr 10/12/20 02:15 10/12/20 20:00 Nacl 0.9% 1000 Ml IV 125 mls/hr DIRECT HOLLY Administration Piperacillin Sod/Tazobactam Sod 4.5 gm in 100 mls @ 200 mls/hr 10/12/20 10:00 10/13/20 13:21 Zosyn/Ns 4.5gm/100ml IV Not Given Q8H HOLLY Protocol Magnesium Hydroxide 30 ml 10/12/20 02:09 Magnesium Hydroxide (Mom) Oral Liqd Udc PO Q4H PRN Constipation Morphine Sulfate 2 mg 10/12/20 02:09 10/12/20 09:27 Morphine 2 Mg/1 Ml Inj IV 2 mg Q4H PRN Administration Pain, Moderate (4-6) Morphine Sulfate 4 mg 10/12/20 02:09 10/12/20 15:37 Morphine 4 Mg/1 Ml Inj IV 4 mg Q4H PRN Administration Pain , Severe (7-10) Ondansetron HCl 4 mg 10/12/20 02:09 Ondansetron 4 Mg/2 Ml Inj IV Q8H PRN Nausea And Vomiting Sodium Chloride 10 ml 10/12/20 08:00 10/12/20 21:45 Sodium Chloride 0.9% 10 Ml Flush Syringe IV Not Given BID HOLLY Sodium Chloride 10 ml 10/12/20 02:09 Sodium Chloride 0.9% 10 Ml Flush Syringe IV PRN PRN LINE FLUSH
[2020-10-13] MEDS ORDERED: SODIUM CHLORIDE 0.9% 1000 ML 1,000 ML IV SCH (15:15)
[2020-10-13] MEDS: SODIUM CHLORIDE 0.9% 1000 ML 1,000 ML IV SCH (15:33)
[2020-10-13] MEDS: MORPHINE 4 MG/1 ML INJ IV PRN ×2 (16:38→22:05)
--- NOTE | 2020-10-13 17:11 | Anesthesia Day of Surgery ---
Anesthesia Day of Surgery - Day of Surgery Patient Examined: Yes Patient H&P Reviewed: Yes Patient is NPO: Yes
--- NOTE | 2020-10-13 17:14 | Post Anesthesia Evaluation ---
- Post Anesthesia Evaluation Patient Participated: Yes Airway Patent: Yes Stable Respiratory Function: Yes Nausea/Vomiting: No Temp > 96.8F: Yes Pain Manageable: Yes Adequeate Hydration: Yes Anesthesia Complications: No Block Receding Appropriately: Not Applicable Patient on Ventilator: No
--- NOTE | 2020-10-13 17:14 | Anesthesia Consultation ---
Anesthesia Consult and Med Hx Date of service: 10/13/20 - Airway ROM Head & Neck: Adequate Mental/Hyoid Distance: Adequate Mallampati Class: Class III Intubation Access Assessment: Probably Good - Pre-Operative Health Status ASA Pre-Surgery Classification: ASA2 Proposed Anesthetic Plan: General - Other Systems Hx Obesity: Yes
[2020-10-14] MEDS: PIPERACIL/TAZOBACTA 4.5/NS 100 4.5 GM/100 ML VIAL IV SCH ×3 (02:37→18:09)
[2020-10-14 05:23] LABS: Basophils % (Auto) 0.1 % (0.0-1.8); Hematocrit 34.5 % (35.5-45.6); Hemoglobin 11.6 gm/dl (11.8-15.2); Lymphocytes # (Auto) 1.2 K/mm3 (1.2-5.4); Lymphocytes % (Auto) 9.5 % (13.4-35.0); Mean Corpuscular HGB Conc 34 % (32-34); Mean Corpuscular Volume 79 fl (84-94); Monocytes # (Auto) 0.8 K/mm3 (0.0-0.8); Platelet Count 247 K/mm3 (140-440); Red Blood Count 4.36 M/mm3 (3.65-5.03); Red Cell Distribution Width 13.5 % (13.2-15.2)
[2020-10-14 05:37] LABS: Alanine Aminotransferase 96 units/L (7-56); Albumin 3.2 g/dL (3.9-5); BUN/Creatinine Ratio 8; Blood Urea Nitrogen 11 mg/dL (9-20); Calcium 8.7 mg/dL (8.4-10.2); Hemolysis Index 15
[2020-10-14] MEDS: MORPHINE 4 MG/1 ML INJ IV PRN (08:04)
[2020-10-14] MEDS: SODIUM CHLORIDE 0.9% 1000 ML 1,000 ML IV SCH (10:18)
--- NOTE | 2020-10-14 12:46 | Progress Note ---
Assessment and Plan - Patient Problems (1) Cholecystitis Current Visit: Yes Status: Acute Plan to address problem: 1) Regular diet 2) Ambulate in halls 3) Percocet 4) Continue IV antibiotics Subjective Date of service: 10/14/20 Patient Reports: Positive: no new complaints, feels better, pain is less, tolerating liquids well Objective Vital Signs - 12hr 10/14/20 05:55 Temperature 98.3 F Pulse Rate 79 Respiratory 18 Rate Blood Pressure 109/67 O2 Sat by Pulse 93 Oximetry - Abdomen soft, bowel sounds normal (Minimally TTP. ARNOLDO drainage is SS.) - Labs 10/14/20 04:22 10/14/20 04:22 Diabetes panel 10/14/20 Range/Units 04:22 Sodium 136 L (137-145) mmol/L Potassium 4.6 (3.6-5.0) mmol/L Chloride 101.4 (98-107) mmol/L Carbon Dioxide 25 (22-30) mmol/L BUN 11 (9-20) mg/dL Creatinine 1.3 (0.8-1.3) mg/dL Glucose 118 H (75-100) mg/dL Calcium 8.7 (8.4-10.2) mg/dL AST 61 H (5-40) units/L ALT 96 H (7-56) units/L Alkaline Phosphatase 96 (35-129) units/L Total Protein 6.7 (6.3-8.2) g/dL Albumin 3.2 L (3.9-5) g/dL Calcium panel 10/14/20 Range/Units 04:22 Calcium 8.7 (8.4-10.2) mg/dL Albumin 3.2 L (3.9-5) g/dL Pituitary panel 10/14/20 Range/Units 04:22 Sodium 136 L (137-145) mmol/L Potassium 4.6 (3.6-5.0) mmol/L Chloride 101.4 (98-107) mmol/L Carbon Dioxide 25 (22-30) mmol/L BUN 11 (9-20) mg/dL Creatinine 1.3 (0.8-1.3) mg/dL Glucose 118 H (75-100) mg/dL Calcium 8.7 (8.4-10.2) mg/dL Adrenal panel 10/14/20 Range/Units 04:22 Sodium 136 L (137-145) mmol/L Potassium 4.6 (3.6-5.0) mmol/L Chloride 101.4 (98-107) mmol/L Carbon Dioxide 25 (22-30) mmol/L BUN 11 (9-20) mg/dL Creatinine 1.3 (0.8-1.3) mg/dL Glucose 118 H (75-100) mg/dL Calcium 8.7 (8.4-10.2) mg/dL Total Bilirubin 0.60 (0.1-1.2) mg/dL AST 61 H (5-40) units/L ALT 96 H (7-56) units/L Alkaline Phosphatase 96 (35-129) units/L Total Protein 6.7 (6.3-8.2) g/dL Albumin 3.2 L (3.9-5) g/dL
[2020-10-14] MEDS: oxyCODONE /ACETAMINOPHEN 5-325MG TAB PO PRN ×2 (14:27→21:06)
--- NOTE | 2020-10-14 16:36 | Progress Note ---
Assessment and Plan Assessment and plan: Acute cholecystitis -Status post laparoscopic cholecystectomy on 10/13 Patient is started on clear liquid diet today, he has bowel sounds but not passing flatus rectally. There is a serosanguineous output from the drain. -Intraoperative cultures pending. Afebrile with stable vital signs. On Zosyn for now. Incarcerated ventral hernia on 10/13 -Status post hernia repair Patient is stable postoperatively. Continue to ambulate Pain control with morphine/Percocet DVT prophylaxis: SCDs Disposition: Per Dr. Webber patient to be in the hospital for a couple of days for IV antibiotics. Discussed with the patient and the nursing staff. History Interval history: Patient is alert, oriented looks comfortable and walking around. However he does complain of abdominal pains and taking Percocet. He is on clear liquid diet but not yet passing flatus rectally. Serosanguineous fluid draining from the drain. He does have good bowel sounds. Currently on a clear liquid diet but not yet tried today. General surgery is following. Stable vital signs. Afebrile. On Zosyn for general surgery. Intraoperative cultures pending. Hospitalist Physical - Constitutional Vitals: Temp Pulse Resp BP Pulse Ox 98.3 F 75 16 140/83 92 10/14/20 12:04 10/14/20 12:04 10/14/20 12:04 10/14/20 12:04 10/14/20 12:04 General appearance: Present: no acute distress, well-nourished, other (Mildly obese) - EENT Eyes: Present: PERRL. Absent: scleral icterus ENT: clear oral mucosa - Neck Neck: Present: supple - Respiratory Respiratory effort: normal Respiratory: bilateral: CTA - Cardiovascular Rhythm: regular - Extremities Extremities: No edema - Abdominal General gastrointestinal: non-distended, normal bowel sounds, other (Some mild tenderness in right upper quadrant as expected postoperatively. Serosanguineous fluid is present in the drain bulb.) - Integumentary Integumentary: Absent: rash - Psychiatric Psychiatric: appropriate mood/affect Results - Labs CBC & Chem 7: 10/15/20 07:25 10/15/20 07:25 Labs: Laboratory Last Values WBC 12.6 K/mm3 (4.5-11.0) H 10/14/20 04:22 RBC 4.36 M/mm3 (3.65-5.03) 10/14/20 04:22 Hgb 11.6 gm/dl (11.8-15.2) L 10/14/20 04:22 Hct 34.5 % (35.5-45.6) L 10/14/20 04:22 MCV 79 fl (84-94) L 10/14/20 04:22 MCH 27 pg (28-32) L 10/14/20 04:22 MCHC 34 % (32-34) 10/14/20 04:22 RDW 13.5 % (13.2-15.2) 10/14/20 04:22 Plt Count 247 K/mm3 (140-440) 10/14/20 04:22 Lymph % (Auto) 9.5 % (13.4-35.0) L 10/14/20 04:22 [place] % (Auto) 6.0 % (0.0-7.3) 10/14/20 04:22 Eos % (Auto) 0.0 % (0.0-4.3) 10/14/20 04:22 Baso % (Auto) 0.1 % (0.0-1.8) 10/14/20 04:22 Lymph # (Auto) 1.2 K/mm3 (1.2-5.4) 10/14/20 04:22 [place] # (Auto) 0.8 K/mm3 (0.0-0.8) 10/14/20 04:22 Eos # (Auto) 0.0 K/mm3 (0.0-0.4) 10/14/20 04:22 Baso # (Auto) 0.0 K/mm3 (0.0-0.1) 10/14/20 04:22 Seg Neutrophils % 84.4 % (40.0-70.0) H 10/14/20 04:22 Seg Neutrophils # 10.7 K/mm3 (1.8-7.7) H 10/14/20 04:22 PT 15.6 Sec. (12.2-14.9) H 10/13/20 07:55 INR 1.19 (0.87-1.13) H 10/13/20 07:55 Sodium 136 mmol/L (137-145) L 10/14/20 04:22 Potassium 4.6 mmol/L (3.6-5.0) 10/14/20 04:22 Chloride 101.4 mmol/L (98-107) 10/14/20 04:22 Carbon Dioxide 25 mmol/L (22-30) 10/14/20 04:22 Anion Gap 14 mmol/L 10/14/20 04:22 BUN 11 mg/dL (9-20) 10/14/20 04:22 Creatinine 1.3 mg/dL (0.8-1.3) 10/14/20 04:22 Estimated GFR > 60 ml/min 10/14/20 04:22 BUN/Creatinine Ratio 8 % 10/14/20 04:22 Glucose 118 mg/dL (75-100) H 10/14/20 04:22 Calcium 8.7 mg/dL (8.4-10.2) 10/14/20 04:22 Total Bilirubin 0.60 mg/dL (0.1-1.2) 10/14/20 04:22 AST 61 units/L (5-40) H 10/14/20 04:22 ALT 96 units/L (7-56) H 10/14/20 04:22 Alkaline Phosphatase 96 units/L (35-129) 10/14/20 04:22 Total Protein 6.7 g/dL (6.3-8.2) 10/14/20 04:22 Albumin 3.2 g/dL (3.9-5) L 10/14/20 04:22 Albumin/Globulin Ratio 0.9 % 10/14/20 04:22 Lipase 50 units/L (13-60) 10/11/20 17:59 Urine Color Yellow (Yellow) 10/11/20 19:38 Urine Turbidity Clear (Clear) 10/11/20 19:38 Urine pH 5.0 (5.0-7.0) 10/11/20 19:38 Ur Specific [place] 1.021 (1.003-1.030) 10/11/20 19:38 Urine Protein <15 mg/dl mg/dL (Negative) 10/11/20 19:38 Urine Glucose (UA) Neg mg/dL (Negative) 10/11/20 19:38 Urine Ketones 20 mg/dL (Negative) 10/11/20 19:38 Urine Blood Sm (Negative) 10/11/20 19:38 Urine Nitrite Neg (Negative) 10/11/20 19:38 Urine Bilirubin Neg (Negative) 10/11/20 19:38 Urine Urobilinogen < 2.0 mg/dL (<2.0) 10/11/20 19:38 Ur Leukocyte Esterase Neg (Negative) 10/11/20 19:38 Urine WBC (Auto) 1.0 /HPF (0.0-6.0) 10/11/20 19:38 Urine RBC (Auto) 7.0 /HPF (0.0-6.0) 10/11/20 19:38 Urine Mucus Few /HPF 10/11/20 19:38 Microbiology: Microbiology 10/13/20 13:30 Gallbladder Fluid Surgical Culture - Preliminary [place]/IV: Voiding Method Urinal Active Medications - Current Medications Current Medications: Generic Name Dose Route Start Last Admin Trade Name Freq PRN Reason Stop Dose Admin Acetaminophen 650 mg 10/12/20 02:09 10/12/20 16:54 Acetaminophen 325 Mg Tab PO 650 mg Q4H PRN Administration Pain MILD(1-3)/Fever >100.5/ABARCA Sodium Chloride 1,000 mls @ 125 mls/hr 10/12/20 02:15 10/14/20 10:18 Nacl 0.9% 1000 Ml IV 125 mls/hr DIRECT HOLLY Administration Piperacillin Sod/Tazobactam Sod 4.5 gm in 100 mls @ 200 mls/hr 10/12/20 10:00 10/14/20 10:17 Zosyn/Ns 4.5gm/100ml IV 200 mls/hr Q8H HOLLY Administration Protocol Sodium Chloride 1,000 mls @ 75 mls/hr 10/13/20 15:15 Nacl 0.9% 1000 Ml IV DIRECT HOLLY Magnesium Hydroxide 30 ml 10/12/20 02:09 Magnesium Hydroxide (Mom) Oral Liqd Udc PO Q4H PRN Constipation Morphine Sulfate 2 mg 10/12/20 02:09 10/12/20 09:27 Morphine 2 Mg/1 Ml Inj IV 2 mg Q4H PRN Administration Pain, Moderate (4-6) Ondansetron HCl 4 mg 10/12/20 02:09 Ondansetron 4 Mg/2 Ml Inj IV Q8H PRN Nausea And Vomiting Oxycodone/Acetaminophen 1 tab 10/14/20 13:30 10/14/20 14:27 Oxycodone /Acetaminophen 5-325mg Tab PO 1 tab Q6H PRN Administration Pain, Moderate (4-6) Sodium Chloride 10 ml 10/12/20 08:00 10/14/20 08:05 Sodium Chloride 0.9% 10 Ml Flush Syringe IV Not Given BID HOLLY Sodium Chloride 10 ml 10/12/20 02:09 Sodium Chloride 0.9% 10 Ml Flush Syringe IV PRN PRN LINE FLUSH
[2020-10-14] MEDS: MORPHINE 2 MG/1 ML INJ IV PRN (18:08)
[2020-10-15] MEDS: PIPERACIL/TAZOBACTA 4.5/NS 100 4.5 GM/100 ML VIAL IV SCH ×2 (00:59→10:54)
[2020-10-15] MEDS: MORPHINE 2 MG/1 ML INJ IV PRN (04:30)
[2020-10-15] MEDS: SODIUM CHLORIDE 0.9% 1000 ML 1,000 ML IV SCH (04:50)
[2020-10-15 08:29] LABS: Basophils % (Auto) 0.4 % (0.0-1.8); Eosinophils # (Auto) 0.1 K/mm3 (0.0-0.4); Eosinophils % (Auto) 0.6 % (0.0-4.3); Hematocrit 38.9 % (35.5-45.6); Hemoglobin 12.7 gm/dl (11.8-15.2); Lymphocytes % (Auto) 21.8 % (13.4-35.0); Mean Corpuscular HGB Conc 33 % (32-34); Mean Corpuscular Volume 80 fl (84-94); Monocytes # (Auto) 0.6 K/mm3 (0.0-0.8); Monocytes % (Auto) 6.5 % (0.0-7.3); Platelet Count 331 K/mm3 (140-440); Red Blood Count 4.89 M/mm3 (3.65-5.03); Red Cell Distribution Width 13.4 % (13.2-15.2)
[2020-10-15 08:55] LABS: Alanine Aminotransferase 100 units/L (7-56); Albumin 3.7 g/dL (3.9-5); BUN/Creatinine Ratio 8; Blood Urea Nitrogen 10 mg/dL (9-20); Calcium 9.1 mg/dL (8.4-10.2); Hemolysis Index 3
[2020-10-15] MEDS: oxyCODONE /ACETAMINOPHEN 5-325MG TAB PO PRN ×2 (11:03→20:24)
[2020-10-15 12:22] VITALS: BP 153/88
[2020-10-15] MEDS ORDERED: LIDOCAINE 1%/EPINEPHRINE 1:100,000 VIAL (20 ML) INFILTRATI STA (15:09)
--- NOTE | 2020-10-15 15:42 | Progress Note ---
Assessment and Plan - Patient Problems (1) Cholecystitis Current Visit: Yes Status: Acute Plan to address problem: 1) ARNOLDO drain removed. 2) Okay for discharge from my perspective. 3) F/u with me in 2 weeks 4) Regular diet 5) No lifting or straining 6) Rx - Narcotic of choice + Levaquin, 500 mg po daily X 7 days Subjective Date of service: 10/15/20 Patient Reports: Positive: no new complaints, feels better, pain is less, tolerating a regular diet Objective Vital Signs - 12hr 10/15/20 10/15/20 10/15/20 04:30 05:00 05:06 Temperature 97.7 F Pulse Rate 75 Respiratory 17 17 18 Rate Blood Pressure 149/82 O2 Sat by Pulse 92 Oximetry 10/15/20 10/15/20 07:40 11:51 Temperature 98.6 F 97.8 F Pulse Rate 74 81 Respiratory 18 16 Rate Blood Pressure 142/82 153/88 O2 Sat by Pulse 94 93 Oximetry - Abdomen soft, bowel sounds normal (NT) - Labs 10/15/20 07:25 10/15/20 07:25 Diabetes panel 10/15/20 Range/Units 07:25 Sodium 137 (137-145) mmol/L Potassium 4.1 (3.6-5.0) mmol/L Chloride 100.0 (98-107) mmol/L Carbon Dioxide 28 (22-30) mmol/L BUN 10 (9-20) mg/dL Creatinine 1.2 (0.8-1.3) mg/dL Glucose 107 H (75-100) mg/dL Calcium 9.1 (8.4-10.2) mg/dL AST 57 H (5-40) units/L ALT 100 H (7-56) units/L Alkaline Phosphatase 96 (35-129) units/L Total Protein 7.3 (6.3-8.2) g/dL Albumin 3.7 L (3.9-5) g/dL Calcium panel 10/15/20 Range/Units 07:25 Calcium 9.1 (8.4-10.2) mg/dL Albumin 3.7 L (3.9-5) g/dL Pituitary panel 10/15/20 Range/Units 07:25 Sodium 137 (137-145) mmol/L Potassium 4.1 (3.6-5.0) mmol/L Chloride 100.0 (98-107) mmol/L Carbon Dioxide 28 (22-30) mmol/L BUN 10 (9-20) mg/dL Creatinine 1.2 (0.8-1.3) mg/dL Glucose 107 H (75-100) mg/dL Calcium 9.1 (8.4-10.2) mg/dL Adrenal panel 10/15/20 Range/Units 07:25 Sodium 137 (137-145) mmol/L Potassium 4.1 (3.6-5.0) mmol/L Chloride 100.0 (98-107) mmol/L Carbon Dioxide 28 (22-30) mmol/L BUN 10 (9-20) mg/dL Creatinine 1.2 (0.8-1.3) mg/dL Glucose 107 H (75-100) mg/dL Calcium 9.1 (8.4-10.2) mg/dL Total Bilirubin 0.50 (0.1-1.2) mg/dL AST 57 H (5-40) units/L ALT 100 H (7-56) units/L Alkaline Phosphatase 96 (35-129) units/L Total Protein 7.3 (6.3-8.2) g/dL Albumin 3.7 L (3.9-5) g/dL
--- NOTE | 2020-10-15 17:41 | Progress Note ---
Hospitalist Physical - Constitutional Vitals: Temp Pulse Resp BP Pulse Ox 97.8 F 81 16 153/88 93 10/15/20 11:51 10/15/20 11:51 10/15/20 11:51 10/15/20 11:51 10/15/20 11:51 General appearance: Present: no acute distress, well-nourished, other (Mildly obese) Results - Labs CBC & Chem 7: 10/15/20 07:25 10/15/20 07:25 Labs: Laboratory Last Values WBC 9.2 K/mm3 (4.5-11.0) 10/15/20 07:25 RBC 4.89 M/mm3 (3.65-5.03) 10/15/20 07:25 Hgb 12.7 gm/dl (11.8-15.2) 10/15/20 07:25 Hct 38.9 % (35.5-45.6) 10/15/20 07:25 MCV 80 fl (84-94) L 10/15/20 07:25 MCH 26 pg (28-32) L 10/15/20 07:25 MCHC 33 % (32-34) 10/15/20 07:25 RDW 13.4 % (13.2-15.2) 10/15/20 07:25 Plt Count 331 K/mm3 (140-440) 10/15/20 07:25 Lymph % (Auto) 21.8 % (13.4-35.0) 10/15/20 07:25 [place] % (Auto) 6.5 % (0.0-7.3) 10/15/20 07:25 Eos % (Auto) 0.6 % (0.0-4.3) 10/15/20 07:25 Baso % (Auto) 0.4 % (0.0-1.8) 10/15/20 07:25 Lymph # (Auto) 2.0 K/mm3 (1.2-5.4) 10/15/20 07:25 [place] # (Auto) 0.6 K/mm3 (0.0-0.8) 10/15/20 07:25 Eos # (Auto) 0.1 K/mm3 (0.0-0.4) 10/15/20 07:25 Baso # (Auto) 0.0 K/mm3 (0.0-0.1) 10/15/20 07:25 Seg Neutrophils % 70.7 % (40.0-70.0) H 10/15/20 07:25 Seg Neutrophils # 6.5 K/mm3 (1.8-7.7) 10/15/20 07:25 PT 15.6 Sec. (12.2-14.9) H 10/13/20 07:55 INR 1.19 (0.87-1.13) H 10/13/20 07:55 Sodium 137 mmol/L (137-145) 10/15/20 07:25 Potassium 4.1 mmol/L (3.6-5.0) 10/15/20 07:25 Chloride 100.0 mmol/L (98-107) 10/15/20 07:25 Carbon Dioxide 28 mmol/L (22-30) 10/15/20 07:25 Anion Gap 13 mmol/L 10/15/20 07:25 BUN 10 mg/dL (9-20) 10/15/20 07:25 Creatinine 1.2 mg/dL (0.8-1.3) 10/15/20 07:25 Estimated GFR > 60 ml/min 10/15/20 07:25 BUN/Creatinine Ratio 8 % 10/15/20 07:25 Glucose 107 mg/dL (75-100) H 10/15/20 07:25 Calcium 9.1 mg/dL (8.4-10.2) 10/15/20 07:25 Total Bilirubin 0.50 mg/dL (0.1-1.2) 10/15/20 07:25 AST 57 units/L (5-40) H 10/15/20 07:25 ALT 100 units/L (7-56) H 10/15/20 07:25 Alkaline Phosphatase 96 units/L (35-129) 10/15/20 07:25 Total Protein 7.3 g/dL (6.3-8.2) 10/15/20 07:25 Albumin 3.7 g/dL (3.9-5) L 10/15/20 07:25 Albumin/Globulin Ratio 1.0 % 10/15/20 07:25 Lipase 50 units/L (13-60) 10/11/20 17:59 Urine Color Yellow (Yellow) 10/11/20 19:38 Urine Turbidity Clear (Clear) 10/11/20 19:38 Urine pH 5.0 (5.0-7.0) 10/11/20 19:38 Ur Specific Max 1.021 (1.003-1.030) 10/11/20 19:38 Urine Protein <15 mg/dl mg/dL (Negative) 10/11/20 19:38 Urine Glucose (UA) Neg mg/dL (Negative) 10/11/20 19:38 Urine Ketones 20 mg/dL (Negative) 10/11/20 19:38 Urine Blood Sm (Negative) 10/11/20 19:38 Urine Nitrite Neg (Negative) 10/11/20 19:38 Urine Bilirubin Neg (Negative) 10/11/20 19:38 Urine Urobilinogen < 2.0 mg/dL (<2.0) 10/11/20 19:38 Ur Leukocyte Esterase Neg (Negative) 10/11/20 19:38 Urine WBC (Auto) 1.0 /HPF (0.0-6.0) 10/11/20 19:38 Urine RBC (Auto) 7.0 /HPF (0.0-6.0) 10/11/20 19:38 Urine Mucus Few /HPF 10/11/20 19:38 Microbiology: Microbiology 10/13/20 13:30 Gallbladder Fluid Surgical Culture - Preliminary [place]/IV: Voiding Method Urinal Active Medications - Current Medications Current Medications: Generic Name Dose Route Start Last Admin Trade Name Freq PRN Reason Stop Dose Admin Acetaminophen 650 mg 10/12/20 02:09 10/12/20 16:54 Acetaminophen 325 Mg Tab PO 650 mg Q4H PRN Administration Pain MILD(1-3)/Fever >100.5/ABARCA Piperacillin Sod/Tazobactam Sod 4.5 gm in 100 mls @ 200 mls/hr 10/12/20 10:00 10/15/20 10:54 Zosyn/Ns 4.5gm/100ml IV 200 mls/hr Q8H HOLLY Administration Protocol Sodium Chloride 1,000 mls @ 75 mls/hr 10/13/20 15:15 10/15/20 11:01 Nacl 0.9% 1000 Ml IV 75 mls/hr DIRECT HOLLY Administration Magnesium Hydroxide 30 ml 10/12/20 02:09 Magnesium Hydroxide (Mom) Oral Liqd Udc PO Q4H PRN Constipation Morphine Sulfate 2 mg 10/12/20 02:09 10/15/20 04:30 Morphine 2 Mg/1 Ml Inj IV 2 mg Q4H PRN Administration Pain, Moderate (4-6) Ondansetron HCl 4 mg 10/12/20 02:09 Ondansetron 4 Mg/2 Ml Inj IV Q8H PRN Nausea And Vomiting Oxycodone/Acetaminophen 1 tab 10/14/20 13:30 10/15/20 11:03 Oxycodone /Acetaminophen 5-325mg Tab PO 1 tab Q6H PRN Administration Pain, Moderate (4-6) Sodium Chloride 10 ml 10/12/20 08:00 10/15/20 10:56 Sodium Chloride 0.9% 10 Ml Flush Syringe IV 10 ml BID HOLLY Administration Sodium Chloride 10 ml 10/12/20 02:09 Sodium Chloride 0.9% 10 Ml Flush Syringe IV PRN PRN LINE FLUSH
--- NOTE | 2020-10-15 18:57 | Discharge Summary ---
Providers - Providers Date of Admission: 10/13/20 14:46 Attending physician: ELIO CORONEL MD 10/12/20 02:09 Consult to Physician [CONS] Routine Comment: PAT Pandey spoke with Dr. Webber @ [phone] Consulting Provider: NAVID WEBBER Physician Instructions: Reason For Exam: acute pancreatitis Primary care physician: REJI HERNANDEZ MD Hospitalization Condition: Stable Disposition: DC-01 TO HOME OR SELFCARE Final Discharge Diagnosis (Prints w/discharge instructions): lap justin. hernia repair Time spent for discharge: 35 mins Exam - Constitutional Vitals: Temp Pulse Resp BP Pulse Ox 97.8 F 81 16 153/88 93 10/15/20 11:51 10/15/20 11:51 10/15/20 11:51 10/15/20 11:51 10/15/20 11:51 Plan Activity: other (No straining ot lifting weights) Diet: regular Wound: per wound nurse instructions Additional Instructions: follow up with surgery in 2 weeks as advised Follow up with: PRIMARY CARE, [Primary Care Provider] - 7 Days Prescriptions: levoFLOXacin [Levaquin] 750 mg PO QDAY #7 tablet
== END 2020-10-15 21:30 | disposition home or self-care (01) | DRG 354 ==
LOC: ED 17:18 → 3B 10-12 01:37 → INTOOBSV 10-12 01:37 → OBSVTOIN 10-13 14:46
PROVIDERS: ADMIT Internal Medicine Geriatric Medicine; ATTEND Internal Medicine
PROC: 0FT44ZZ Resection of Gallbladder, Percutaneous Endoscopic Approach (ICD-10-PCS; principal; 2020-10-13)
PROC: 0WQF0ZZ Repair Abdominal Wall, Open Approach (ICD-10-PCS; 2020-10-13)
DX: K42.0 Umbilical hernia with obstruction, without gangrene (principal); K81.0 Acute cholecystitis; E66.9 Obesity, unspecified; Z79.899 Other long term (current) drug therapy; Z79.891 Long term (current) use of opiate analgesic; Z79.01 Long term (current) use of anticoagulants; Z68.34 Body mass index [BMI] 34.0-34.9, adult
CPT/HCPCS: 36415; 71046; 74022; 74177; 76705; 80048; 80053; 81001; 83690; 85025; 85610; 87116; 88302; 88304; 93005; 96365; 96375; G0378; A4217; J1100; J1170; J1200; J1885; J2250; J2270; J2370; J2405; J2543; J2704; J2710; J2765; J3010; J7030; Q0162; Q9967

== ENCOUNTER 2020-12-25 05:49 | Emergency (ER) | payer OTHER, SELFPAY ==
--- NOTE | 2020-12-25 06:04 | Emergency Department Report ---
ED CPR HPI - General Chief Complaint: Cardiac Arrest/CPR Stated Complaint: CARDIAC ARREST Time Seen by Provider: 12/25/20 05:49 Source: EMS Mode of arrival: Stretcher Limitations: Altered Mental Status, Physical Limitation - History of Present Illness Initial Comments: Patient is a 50-year-old male who presents emergency room for cardiac arrest. The initial bradycardia report from EMS is the patient was a respiratory arrest and still had a pulse. While in route to the hospital with EMS, the patient went into a cardiac arrest after braiding down. Patient was given 2 rounds of epi by EMS. Further respiratory arrest, the patient was intubated with a 7 ET tube, Placement verified. CPR initiated by EMS. Patient transferred to our [facility] and CPR was continued. Patient is recently diagnosed with Covid. Complaint: stopped breathing Place: home Bystander CPR Performed: No AED Applied by Bystander/Storage Management Architect: No Initial Findings in the Field: no respirations, good pulses ROSC in the Field: No Associated Injuries: No Associated Symptoms: shortness of breath Treatments Prior to Arrival: intubation, BMV, chest compressions, epinephrine mgs # - Related Data Previous Rx's Medication Instructions Recorded Last Taken Type Acetaminophen [Acetaminophen TAB] 650 mg PO Q4H PRN tablet 10/15/20 Unknown Rx Magnesium Hydroxide [Milk of 30 ml PO Q4H PRN oral.liqd 10/15/20 Unknown Rx Magnesia] levoFLOXacin [Levaquin] 750 mg PO QDAY #7 tablet 10/15/20 Unknown Rx oxyCODONE /ACETAMINOPHEN [Percocet 1 tab PO Q6HR PRN 4 Days #12 tablet 10/15/20 Unknown Rx 5/325] Allergies Allergy/AdvReac Type Severity Reaction Status Date / Time No Known Allergies Allergy Unverified 10/11/20 17:44 ED Review of Systems ROS: Stated complaint: CARDIAC ARREST Other details as noted in HPI Comment: Unobtainable due to pts medical conditions ED Past Medical Hx - Past Medical History Previous Medical History?: No - Surgical History Past Surgical History?: Yes Additional Surgical History: HERNIA SURGERY - Family History Family history: no significant - Social History Smoking Status: Never Smoker Substance Use Type: None - Medications Home Medications: Home Medications Medication Instructions Recorded Confirmed Last Taken Type Acetaminophen [Acetaminophen TAB] 650 mg PO Q4H PRN tablet 10/15/20 Unknown Rx Magnesium Hydroxide [Milk of 30 ml PO Q4H PRN oral.liqd 10/15/20 Unknown Rx Magnesia] levoFLOXacin [Levaquin] 750 mg PO QDAY #7 tablet 10/15/20 Unknown Rx oxyCODONE /ACETAMINOPHEN [Percocet 1 tab PO Q6HR PRN 4 Days #12 tablet 10/15/20 Unknown Rx 5/325] ED Physical Exam - General Limitations: Altered Mental Status, Physical Limitation General appearance: obtunded - Head Head exam: Present: atraumatic, normocephalic - Eye Eye exam: Present: other (Pupils are fixed and dilated) - ENT ENT exam: Present: mucous membranes dry - Neck Neck exam: Present: normal inspection - Respiratory Respiratory exam: Present: decreased breath sounds, other (Placement verified for ET tube. Patient has bilateral breath sounds.) - Cardiovascular Cardiovascular Exam: Present: regular rate, normal rhythm. Absent: systolic murmur, diastolic murmur, rubs, gallop - GI/Abdominal GI/Abdominal exam: Present: soft - Rectal Rectal exam: Present: deferred - Extremities Exam Extremities exam: Present: normal inspection, other (Right lower extremity IO placed by EMS.) - Back Exam Back exam: Present: normal inspection - Neurological Exam Neurological exam: Present: altered - Skin Skin exam: Present: warm, dry, normal color. Absent: rash ED Course - Reevaluation(s) Reevaluation #1: Patient arrived with EMS. CPR in progress. Report received from EMS. Patient has a right IO. Line appears to be functioning. 12/25/20 005:45 Reevaluation #2: A new IO was placed due to nonfunctioning right IO. A left tibial IO was placed. See procedure note. 12/25/20 05:52 Reevaluation #3: Resuscitation efforts were terminated due to no signs of life. No pulse noted. Asystole on the monitor. Code ran in accordance with ACLS guidelines. Patient given multiple rounds of medications and CPR. See code note. Family support will be given once the family arrives. 12/25/20 05:58 Reevaluation #4: The nurse contacted the family and requested that they come to the hospital 12/25/20 06:09 - IO Left Tibia Consent Obtained: emergent situation Time Out Performed: Yes IO Instrument Used to Penetrate the Cortex: battery powered IO drill Patient Tolerated Procedure: well, no complications Complications: none ED Medical Decision Making - Medical Decision Making Patient is a 50-year-old male that presents emergency room with cardiac arrest. Patient initially respiratory arrest. Went into cardiac arrest after radio report was received from EMS. Patient had 2 rounds of epi prior to arrival in the hospital. CPR was initiated by EMS. Patient was transferred to our gurney and CPR was continued. Patient goals and ACLS guidelines were initiated. . Patient had an IO placed patient had a left IO placed without difficulty. See procedure note. Resuscitation efforts were terminated due to no signs of life. Patient had no pulse. Patient was asystole on the monitor. Code ran in accordance with ACLS guidelines. See procedure note. Critical care time documented due to the multiple reassessments, prolonged time at the bedside, interpretation of rhythm strips. - Differential Diagnosis Cardiac arrest, respiratory arrest, COVID-19 Critical Care Time: Yes Critical care time in (mins) excluding proc time.: 35 Critical care attestation.: If time is entered above; I have spent that time in minutes in the direct care of this critically ill patient, excluding procedure time. Critical Care Time: 35 minutes ED Disposition Clinical Impression: Cardiac arrest, COVID-19 Disposition: 20 Is pt being admited?: No Does the pt Need Aspirin: No Condition: Undetermined Time of Disposition: 06:20
[2020-12-25] MEDS ORDERED: CALCIUM CHLORIDE 1,000 MG/10 ML SYRINGE IV ONE (11:43)
[2020-12-25] MEDS ORDERED: SODIUM BICARB 8.4% 50 MEQ/50 ML SYRINGE IV ONE (11:43)
[2020-12-25] MEDS ORDERED: EPINEPHrine 1 MG/10 ML SYRINGE ONE (11:43)
== END 2020-12-25 09:55 ==
LOC: ED 05:49
DX: U07.1 COVID-19 (principal); I46.9 Cardiac arrest, cause unspecified; Z98.890 Other specified postprocedural states
CPT/HCPCS: 36680; 82962; 92950; 99285; J0171